=== PATIENT | male | born 1975 | race Caucasian/White ===

== ENCOUNTER 2020-01-14 12:47 | Emergency (ER) | payer BC, SELFPAY ==
--- NOTE | ~2020-01-14 | XR_ITS ---
XR ankle RT min 3V DATE: 01/14/2020 13:05 INDICATION: Twisted ankle 4 days ago. Persistent pain and swelling. TECHNIQUE: 4 views COMPARISON: None FINDINGS: There is soft tissue swelling of the ankle particularly anterolaterally. No fracture or dislocation of the ankle or disruption of the ankle mortise is detected. No periosteal reaction or bone destruction. IMPRESSION: Soft tissue swelling; no fracture or dislocation Reviewed, dictated and finalized at location B.
[2020-01-14 12:54] VITALS: BP 134/90; PULSE 82; RESP 16; TEMP 36.3; O2SAT 100
--- NOTE | 2020-01-14 13:25 | ED.LOWEXIN ---
HPI - Extremity Injury (Lower) General Chief Complaint: Extremity Injury, Lower Stated Complaint: rt foot injury Time Seen by Provider: 01/14/20 13:12 Source: patient and RN notes reviewed Mode of arrival: ambulatory Limitations: no limitations History of Present Illness HPI Narrative: Patient presents today complaining of right ankle injury 4 days ago. Reports that he fell approximately 10 feet to the ground off of the a walk board , twisting his ankle. Denies any additional injuries. Injury occurred at work. Patient is self-employed. Currently rates his pain 2/10 and has been wearing an [place] wrap. Initially he took some ibuprofen, but has not since the first couple of days. Reports some tingling in his toes. Patient has been walking and working since the injury. Pain increases with twisting. It does not increase with walking. MD complaint: ankle injury Related Data Home Medications Medication Instructions Recorded Confirmed Prilosec OTC 01/14/20 Allergies Allergy/AdvReac Type Severity Reaction Status Date / Time topiramate Allergy Unknown Verified 05/28/12 11:01 Review of Systems Review of Systems: Narrative: CONSTITUTIONAL: Denies body aches, fever, chills, or sweats. EYES: Denies visual changes, redness, or discharge. ENT: Denies rhinorrhea, congestion, sore throat, or otalgia. CARDIOVASCULAR: Denies chest pain, palpitations, or edema. RESPIRATORY: Denies cough or dyspnea. GASTROINTESTINAL: Denies abdominal pain, nausea, vomiting, or diarrhea. GENITOURINARY: Denies dysuria or hematuria. SKIN: Denies rash, itching, or wounds. MUSCULOSKELETAL: Denies back pain, or myalgia. + Right ankle injury NEUROLOGIC: Denies headache, numbness, tingling, or weakness. PSYCH: Denies depression or anxiety. PMFSH Comments At time of signature, I have reviewed and agree with nursing past medical, surgical, social and family history unless otherwise noted. Please see nursing chart for further information. There is no relevant family history pertinent to the presenting complaint Exam Narrative: Exam Narrative: GENERAL: Well-appearing, well-nourished, and in no acute distress. HEAD: Normocephalic, atraumatic. EYES: EOMI. No redness or drainage. Conjunctivae normal. ENT: Mucous membranes pink and moist. NECK: Normal AROM. Supple. No lymphadenopathy. CHEST: No respiratory distress. EXTREMITIES: Right ankle: Tenderness to the lateral medial illness. No tenderness posteriorly. Mild edema about the ankle. Healing ecchymosis that surrounds the ankle and extends to the toes. Distal sensation intact. Capillary refill normal. Pedal pulse normal. Full range of motion of the toes and ankle. SKIN: Warm, dry, no rash. Capillary refill normal. Normal skin turgor. NEURO: No focal deficits. Alert and oriented x3. Gait steady. PSYCH: Normal affect. No signs of depression or anxiety. Course Vital Signs Vital signs: Vital Signs Temperature 97.3 F L 01/14/20 12:54 Pulse Rate 82 01/14/20 12:54 Respiratory Rate 16 01/14/20 12:54 Blood Pressure 134/90 01/14/20 12:54 Pulse Oximetry 100 01/14/20 12:54 Temperature 97.3 F L 01/14/20 12:54 Pulse Rate 82 01/14/20 12:54 Respiratory Rate 16 01/14/20 12:54 Blood Pressure 134/90 01/14/20 12:54 Pulse Oximetry 100 01/14/20 12:54 Reviewed. Pt has been instructed to follow up with his PCP regarding his elevated blood pressure today. MDM - Extremity Injury (Lower) Differential Diagnosis Differential diagnosis: Likely ankle sprain and strain, ankle fracture and other (Contusion) Imaging Data Radiologist's impression: ITS Impressions Ankle X-Ray 01/14/20 13:08 IMPRESSION: Soft tissue swelling; no fracture or dislocation Critical Care Time Critical Care Time Critical Care Time: No Discharge Plan Discharge Clinical Impression: Right ankle sprain Qualifiers: Encounter type: initial encounter Involved ligament of ankle: un
== END 2020-01-14 13:33 | disposition home or self-care (01) ==
PROVIDERS: Emergency Provider Nurse Practitioner
DX: S93.401A Sprain of unspecified ligament of right ankle, initial encounter (principal); W17.89XA Other fall from one level to another, initial encounter
CPT/HCPCS: 73610; 99213; G0463